=== PATIENT | female | born 1985 ===

== ENCOUNTER 2018-08-22 08:27 | Emergency (ER) | payer BC, MEDICAID ==
[2018-08-22 08:40] VITALS: BMI 27.2
[2018-08-22 08:44] VITALS: BP 98/62; PULSE 88; RESP 17; TEMP 98.2; O2SAT 97
--- NOTE | 2018-08-22 09:45 | ED PDOC ---
Arrival/HPI - General Chief Complaint: Dizziness/Lightheaded Time Seen by Provider: 08/22/18 08:30 Historian: Patient - History of Present Illness Narrative History of Present Illness (Text): 08/22/18 08:30 32 F with no significant hx who presents to the emergency department with lightheadedness and hot flashes when walking to the bathroom this morning. Patient also notes bilateral ankle swelling with no pain. Patient informs of right sided rib and abdominal pain that is sore to the touch. Patient states she becomes "stuck" when bending over secondary to pain. Patient also informs of cramps in both hands for a couple months. Patient states diarrhea for one month. Patient currently does not have any abdominal pain in the emergency department. Patient denies trauma/injury, fever, sore throat, abdominal pain, nausea, vom iting, back pain, neck pain, or any other complaints. Time/Duration: 1-3 hours, > month Symptom Course: Unchanged Quality: Cramping Activities at Onset: Light Context: Home Past Medical History - Provider Review Nursing Documentation Reviewed: Yes - Infectious Disease Hx of Infectious Diseases: None - Tetanus Immunization Tetanus Immunization: Unknown - Past Medical History Past Medical History: No Previous - Cardiac Hx Cardiac Disorders: No - Pulmonary Hx Respiratory Disorders: No - Neurological Hx Neurological Disorder: No - HEENT Hx HEENT Disorder: No - Psychiatric Hx Psychophysiologic Disorder: No Hx Substance Use: No - Past Surgical History Past Surgical History: No Previous - Surgical History Other/Comment: TOB - Anesthesia Hx Anesthesia: Yes - Suicidal Assessment Feels Threatened In Home Enviroment: No Family/Social History Family/Social History: Diabetes Smoking Status: Heavy Smoker > 10 Cigarettes Daily Hx Alcohol Use: Yes Frequency of alcohol use: Socially Hx Substance Use: No Allergies/Home Meds Allergies/Adverse Reactions: Allergies No Known Allergies Allergy (Verified 10/16/14 12:56) Home Medications: Home Meds Medication Instructions Recorded Confirmed No Known Home Med 10/16/14 10/16/14 Review of Systems - Physician Review All systems were reviewed & negative as marked: Yes - Review of Systems Constitutional: Other (hot flashes). absent: Fevers, Night Sweats ENT: absent: Sore Throat Gastrointestinal: Abdominal Pain (right side), Diarrhea. absent: Nausea, Vomiting Musculoskeletal: Arthralgias (rib pain right side), Joint Swelling (swollen ankles bilaterally), Myalgias (cramping in both hands). absent: Back Pain, Neck Pain, Other (denies trauma or injury) Neurological: Dizziness Physical Exam - Physical Exam Narrative Physical Exam (Text): 08/22/18 08:30 Gen: VS reviewed, alert, well developed, well nourished, nontoxic, mild distress. ENT: normal pharynx. Eye: EOMI, PERRL. Neck: no JVD, supple, no adenopathy. CV: regular rate, regular rhythm, no rubs, no murmur, no gallops, S1, S2, pulses equal and strong. Pulm: no distress, clear to auscultation, no wheeze, no rhonchi, breath sounds equal, no rales. Abd: soft, nontender, no guarding, no rebound, no rigidity, normal bowel sounds. Ext: mild swelling to lateral ankles bilaterally. Skin: good color, no rash, no cyanosis. Psych: responds appropriately to questions, normal affect. Neuro: oriented x 3, CN2-12 intact grossly, motor intact, sensation intact. Vital Signs Reviewed: Yes Vital Signs Temp Pulse Resp BP Pulse Ox 08/22/18 08:43 98.2 F 88 17 98/62 L 97 Temperature: Afebrile Blood Pressure: Normal Pulse: Regular Respiratory Rate: Normal Appearance: Positive for: Well-Appearing, Non-Toxic, Comfortable Pain Distress: None Mental Status: Positive for: Alert and Oriented X 3 Medical Decision Making ED Course and Treatment: 08/22/18 11:13 AMA: TREATMENT REFUSED The patient refuses further medical evaluation and testing and wishes to leave the Emergency Department against my medical advice. Patient was told that this testing is necessary and a full explanation of the reasons why was given, and understood by patient. The risks of leaving were explained and include worsening of condition, and permanent disability and from undiagnosed or untreated conditions. The patient accepts these risks, and is in my judgment is competent and capable of understanding the clinical situation and my explanation of the risks of leaving. Patient was given the opportunity to ask questions and change mind. The patient was instructed regarding the best care for the present symptoms, and to follow up with primary care doctor as soon as possible, or return to the Emergency Department at any time for continuing care. the patient states "i'm not staying here for three hours. this is taking too long. patient was explained that her CT was delayed because of another patient with a stroke. the patient was dismissive and did not want to stay." - Scribe Statement The provider has reviewed the documentation as recorded by the Scribe Haider Sanches All medical record entries made by the Scribe were at my direction and personally dictated by me. I have reviewed the chart and agree that the record accurately reflects my personal performance of the history, physical exam, medical decision making, and the department course for this patient. I have also personally directed, reviewed, and agree with the discharge instructions and disposition. Disposition/Present on Arrival - Present on Arrival Any Indicators Present on Arrival: Yes History of DVT/PE: No History of Uncontrolled Diabetes: No Urinary Catheter: No History of Decub. Ulcer: No History Surgical Site Infection Following: None - Disposition Have Diagnosis and Disposition been Completed?: Yes Diagnosis: Lightheaded, Muscle cramps Disposition: AGAINST MEDICAL ADVICE Disposition Time: 11:16 Patient Problems: Current Active Problems Problem Status Onset Lightheaded Acute Muscle cramps Acute Condition: STABLE Discharge Instructions (ExitCare): Syncope (Fainting), Muscle Spasms (DC) Additional Instructions: follow up with a primary care doctor. Referrals: PCP,NO [Primary Care Provider] - Follow up with primary Forms: [employer] ([place])
[2018-08-22 10:14] LABS: BASO # 0.02 K/mm3 (0.0-2.0); BASO % 0.2 % (0.0-3.0); EOS # 0.1 (0.0-0.7); EOS % 0.9 % (1.5-5.0); HEMOGLOBIN 14.5 g/dL (12.0-16.0); LYMPH # 1.8 (1.2-3.4); LYMPH % 22.4 % (22.0-35.0); MEAN CELL VOLUME 86.6 fl (80.0-105.0); MEAN CORPUSCULAR HEMOGLOBIN 29.5 pg (25.0-35.0); MEAN PLATELET VOLUME 10.2 fl (7.0-11.0); MONO # 0.8 (0.1-0.6); MONO % 10.3 % (1.0-6.0); RBC 4.92 10^6/uL (3.5-6.1); RED CELL DISTRIBUTION WIDTH 12.1 % (11.5-14.5)
[2018-08-22 10:21] LABS: URINE BILIRUBIN NEGATIVE (NEGATIVE); URINE BLOOD NEGATIVE (NEGATIVE); URINE GLUCOSE (UA) NEGATIVE (NEGATIVE); URINE LEUKOCYTE ESTERASE NEGATIVE Leu/uL (NEGATIVE); URINE PROTEIN NEGATIVE mg/dL (<30 mg/dL); URINE UROBILINOGEN 0.2 E.U./dL (<1 E.U./dL)
[2018-08-22 10:22] LABS: URINE APPEARANCE CLEAR (CLEAR); URINE COLOR YELLOW (YELLOW)
[2018-08-22 10:33] LABS: ALB/GLOB RATIO 1.3 (1.1-1.8); ALBUMIN 4.7 g/dL (3.0-4.8); ALT/SGPT 7 U/L (7-56); AST/SGOT 21 U/L (14-36); BLOOD UREA NITROGEN 8 mg/dL (7-21); CALCIUM 10.1 mg/dL (8.4-10.5); GFR NON-AFRICAN AMERICAN > 60
[2018-08-22] MEDS ORDERED: Iohexol 300 100 ML IJ ONE (11:11)
== END 2018-08-22 11:14 | disposition left against medical advice (07) ==
LOC: ED 08:27
DX: R42 Dizziness and giddiness (principal); R25.2 Cramp and spasm; F17.210 Nicotine dependence, cigarettes, uncomplicated; Z83.3 Family history of diabetes mellitus